=== PATIENT | male | born 1975 | race Caucasian/White ===

== ENCOUNTER 2016-06-18 09:51 | Emergency (ER) | payer MEDICAID ==
[~2016-06-18] VITALS: Ht 182.9 cm; Wt 122.5 kg
[2016-06-18 09:52] VITALS: BP 151/98
== END 2016-06-18 10:26 | disposition home or self-care (01) ==
LOC: ED 09:55
DX: H60.91 Unspecified otitis externa, right ear (principal)
CPT/HCPCS: 99283

== ENCOUNTER 2017-06-13 17:46 | Emergency (ER) | payer MEDICAID ==
[~2017-06-13] VITALS: Ht 182.9 cm; Wt 109.9 kg
[2017-06-13 17:54] VITALS: BP 147/74
== END 2017-06-13 18:41 | disposition home or self-care (01) ==
LOC: ED 18:10
DX: J20.9 Acute bronchitis, unspecified (principal); J02.9 Acute pharyngitis, unspecified
CPT/HCPCS: 71046; 99284

== ENCOUNTER 2017-06-29 13:39 | Emergency (ER) | payer MEDICAID ==
[~2017-06-29] VITALS: Ht 182.9 cm; Wt 105.0 kg
[2017-06-29 13:57] VITALS: BP 107/69
== END 2017-06-29 14:39 | disposition home or self-care (01) ==
LOC: ED 14:37
DX: J20.9 Acute bronchitis, unspecified (principal); J01.00 Acute maxillary sinusitis, unspecified; F17.200 Nicotine dependence, unspecified, uncomplicated
CPT/HCPCS: 99283

== ENCOUNTER 2017-08-29 08:35 | Emergency (ER) | payer MEDICAID ==
[~2017-08-29] VITALS: Ht 182.9 cm; Wt 103.0 kg
[2017-08-29 08:35] VITALS: BP 128/80
[2017-08-29] MEDS ORDERED: IBUPROFEN 800 MG TABLET ONE (09:27)
[2017-08-29] MEDS ORDERED: CYCLOBENZAPRINE 10 MG TABLET ONE (09:27)
[2017-08-29] MEDS ORDERED: CYCLOBENZAPRINE 10 MG TABLET PO ONE (09:30)
[2017-08-29] MEDS ORDERED: IBUPROFEN 800 MG TABLET PO SCH (09:30)
== END 2017-08-29 10:26 | disposition home or self-care (01) ==
LOC: ED 10:00
DX: S29.012A Strain of muscle and tendon of back wall of thorax, initial encounter (principal); X50.0XXA Overexertion from strenuous movement or load, initial encounter; Y93.89 Activity, other specified; Y92.89 Other specified places as the place of occurrence of the external cause; Y99.0 Civilian activity done for income or pay
CPT/HCPCS: 99283

== ENCOUNTER 2017-09-05 08:14 | Emergency (ER) | payer MEDICAID ==
[~2017-09-05] VITALS: Ht 182.9 cm; Wt 103.6 kg
[2017-09-05 08:17] VITALS: BP 117/74
== END 2017-09-05 12:29 | disposition home or self-care (01) ==
LOC: ED 09:44
DX: M54.89 Other dorsalgia (principal); F17.200 Nicotine dependence, unspecified, uncomplicated; X50.0XXA Overexertion from strenuous movement or load, initial encounter; Y93.89 Activity, other specified; Y92.89 Other specified places as the place of occurrence of the external cause; Y99.8 Other external cause status
CPT/HCPCS: 72128; 99284

== ENCOUNTER 2018-02-14 10:25 | Outpatient (CLI) | payer MEDICAID | END 2018-02-21 09:48 | disposition home or self-care (01) | LOC: CFH 10:25 | PROVIDERS: ATTEND Nurse Practitioner Family | DX: M48.061 Spinal stenosis, lumbar region without neurogenic claudication (principal); M47.897 Other spondylosis, lumbosacral region | CPT/HCPCS: 72148 ==

== ENCOUNTER 2018-03-29 11:00 | Outpatient (CLI) | payer MEDICAID | END 2018-03-29 23:59 | disposition home or self-care (01) | LOC: RAD 11:00 | PROVIDERS: ATTEND Nurse Practitioner | DX: M47.816 Spondylosis without myelopathy or radiculopathy, lumbar region (principal) | CPT/HCPCS: 72110 ==

== ENCOUNTER → 2018-05-03 | Outpatient (CLI) | payer MEDICAID ==
[~2018-05-03] MED LIST: OMNIPAQUE 350 MG/ML, 100ML BOTTLE ONE
== END | disposition home or self-care (01) ==
LOC: CFH 11:16
PROVIDERS: ATTEND Nurse Practitioner Family
DX: K76.0 Fatty (change of) liver, not elsewhere classified (principal); R14.0 Abdominal distension (gaseous); R74.8 Abnormal levels of other serum enzymes
CPT/HCPCS: 74177; Q9967

== ENCOUNTER 2018-07-10 09:23 | Emergency (ER) | payer MEDICAID ==
[~2018-07-10] VITALS: Ht 182.9 cm; Wt 121.2 kg
[2018-07-10 09:34] VITALS: BP 134/93
--- NOTE | 2018-07-10 09:45 | NUR ---
THIS IS A 43 YEAR OLD MALE WHO C/O OF R SHOULDER PAIN AND R FOOT PAIN X 1.5 WEEKS AFTER MOVING FURNITURE.
--- NOTE | 2018-07-10 10:59 | NUR ---
Patient/Caregiver given discharge instructions and they have confirmed that they understand the instructions. Patient ambulatory with steady gait.
== END 2018-07-10 11:01 | disposition home or self-care (01) ==
LOC: ED 10:40
DX: G89.11 Acute pain due to trauma (principal); M25.511 Pain in right shoulder; M79.671 Pain in right foot; I10 Essential (primary) hypertension; X50.1XXA Overexertion from prolonged static or awkward postures, initial encounter; Y93.89 Activity, other specified; Y92.009 Unspecified place in unspecified non-institutional (private) residence as the place of occurrence of the external cause; Y99.8 Other external cause status
CPT/HCPCS: 99283

== ENCOUNTER 2019-07-10 10:02 | Emergency (ER) | payer MEDICAID ==
[~2019-07-10] VITALS: Ht 182.9 cm; Wt 126.6 kg
[2019-07-10 10:12] VITALS: BP 152/80
== END 2019-07-10 10:56 | disposition home or self-care (01) ==
LOC: ED 10:44
DX: H66.011 Acute suppurative otitis media with spontaneous rupture of ear drum, right ear (principal); M54.2 Cervicalgia; I10 Essential (primary) hypertension
CPT/HCPCS: 99283

== ENCOUNTER → 2020-02-10 | Outpatient (CLI) | payer MEDICAID ==
[~2020-02-10] MED LIST changes: +FENTANYL PF 100 MCG/2ML ONE; +FLUMAZENIL 0.1 MG/1 ML, 5ML ONE; +MIDAZOLAM 1 MG/ML, 5ML ONE; +NALOXONE 1 MG/ML, 2ML ONE; -OMNIPAQUE 350 MG/ML, 100ML BOTTLE ONE
== END | disposition home or self-care (01) ==
LOC: RAD 12:25
PROVIDERS: ATTEND Neurological Surgery
DX: M51.34 Other intervertebral disc degeneration, thoracic region (principal); E11.9 Type 2 diabetes mellitus without complications; F17.210 Nicotine dependence, cigarettes, uncomplicated; G47.30 Sleep apnea, unspecified; Z72.89 Other problems related to lifestyle
CPT/HCPCS: 72146; 99156; 99157; J2250; J3010; J2310

== ENCOUNTER → 2020-09-02 | Outpatient (CLI) | payer MEDICAID ==
[~2020-09-02] MED LIST changes: +DULA1.5P SC; -FENTANYL PF 100 MCG/2ML ONE; -FLUMAZENIL 0.1 MG/1 ML, 5ML ONE; +METF1000 PO; -MIDAZOLAM 1 MG/ML, 5ML ONE; -NALOXONE 1 MG/ML, 2ML ONE
[2020-09-02 13:49] LABS: MICROSCOPIC NOT IND
[2020-09-02 13:50] LABS: BASOPHILS % (AUTO) 1 % (0-1); EOSINOPHILS % (AUTO) 1 % (1-7); LYMPHOCYTES % (AUTO) 21 % (22-44); MEAN CORPUSCULAR HEMOGLOBIN 32.2 pg (27.5-34.5); MEAN CORPUSCULAR HGB CONC 34.7 g/dL (33.2-36.2); MEAN PLATELET VOLUME 7.9 fL (7.4-10.4); MONOCYTES % (AUTO) 9 % (2-9); NEUTROPHILS % (AUTO) 69 % (42-75); PLATELET COUNT 209 x10^3/uL (130-400); RED BLOOD COUNT 5.62 x10^6/uL (4.38-5.82); RED CELL DISTRIBUTION WIDTH 13.7 % (9.4-14.8)
[2020-09-02 14:01] LABS: ALANINE AMINOTRANSFERASE 23 U/L (12-78); ALBUMIN 4.1 g/dL (3.4-5.0); ANION GAP 7 mmol/L (5-15); CALCIUM 9.7 mg/dL (8.5-10.1); CHLORIDE 106 mmol/L (98-107); CREATININE 0.81 mg/dL (0.7-1.3)
[2020-09-02 14:02] LABS: INTERNATIONAL NORMALIZED RATIO 1.01 (0.93-1.1); PROTHROMBIN TIME 10.8 Seconds (9.6-11.5)
[2020-09-02 14:04] LABS: ALKALINE PHOSPHATASE 62 U/L (45-117); BILIRUBIN,TOTAL 0.5 mg/dL (0.2-1.0)
== END | disposition home or self-care (01) ==
LOC: STAR 12:30
PROVIDERS: ATTEND Neurological Surgery
DX: Z01.818 Encounter for other preprocedural examination (principal); M51.37 Other intervertebral disc degeneration, lumbosacral region; M47.817 Spondylosis without myelopathy or radiculopathy, lumbosacral region; M25.78 Osteophyte, vertebrae; Z20.822 Contact with and (suspected) exposure to COVID-19
CPT/HCPCS: 36415; 71046; 72110; 80053; 81003; 85025; 85610; 85730; 93005; U0003; U0005

== ENCOUNTER 2020-09-04 09:48 | Outpatient (CLI) | payer MEDICAID ==
[2020-09-04] MEDS ORDERED: NALOXONE 1 MG/ML, 2ML ONE (10:59)
[2020-09-04] MEDS ORDERED: MIDAZOLAM 1 MG/ML, 5ML ONE (10:59)
[2020-09-04] MEDS ORDERED: FENTANYL PF 100 MCG/2ML ONE (10:59)
[2020-09-04] MEDS ORDERED: FLUMAZENIL 0.1 MG/1 ML, 5ML ONE (10:59)
== END 2020-09-04 23:59 | disposition home or self-care (01) ==
LOC: RAD 09:48
PROVIDERS: ATTEND Neurological Surgery
DX: M51.36 Other intervertebral disc degeneration, lumbar region (principal); M48.061 Spinal stenosis, lumbar region without neurogenic claudication; G47.30 Sleep apnea, unspecified; E11.9 Type 2 diabetes mellitus without complications; F17.200 Nicotine dependence, unspecified, uncomplicated; Z79.84 Long term (current) use of oral hypoglycemic drugs; Z79.899 Other long term (current) drug therapy
CPT/HCPCS: 72148; 99156; 99157; J2250; J3010; J2310

== ENCOUNTER 2020-09-09 07:01 | Inpatient (IN) | payer MEDICAID ==
[~2020-09-09] VITALS: Ht 182.9 cm; Wt 108.0 kg
[~2020-09-09 07:01] MED LIST changes: +BACITRACIN 50,000 UNIT ONE; +BUPIVACAINE/PF 0.25% ONE
[2020-09-09 07:41] VITALS: BP 112/79
[2020-09-09] MEDS ORDERED: CHLORHEXIDINE 15 ML UDC ONE (07:47)
[2020-09-09] MEDS ORDERED: CHLORHEXIDINE 15 ML UDC PO ONE (08:00)
[2020-09-09] MEDS ORDERED: LACTATED RINGERS 1,000 ML IV SCH (08:00)
[2020-09-09] MEDS ORDERED: VANCOMYCIN 1,000 MG ONE (08:15)
[2020-09-09] MEDS ORDERED: MIDAZOLAM 1 MG/ML, 2ML ONE (08:35)
[2020-09-09] MEDS ORDERED: FENTANYL PF 250 MCG/5ML ONE (08:36)
[2020-09-09] MEDS ORDERED: PROPOFOL 100 ML ONE ×2 (08:38→11:49)
[2020-09-09] MEDS ORDERED: KETAMINE 10 MG/ML, 20ML ONE (09:54)
[2020-09-09] MEDS ORDERED: SUCCINYLCHOLINE 20 MG/ML, 10ML ONE (09:56)
[2020-09-09] MEDS ORDERED: CEFAZOLIN 1,000 MG ONE (09:56)
[2020-09-09] MEDS ORDERED: ONDANSETRON 2MG/ML, 2ML ONE (09:56)
[2020-09-09] MEDS ORDERED: GLYCOPYRROLATE 0.2MG/1ML, 5ML ONE (09:56)
[2020-09-09] MEDS ORDERED: PROPOFOL 10 MG/ML, 20ML ONE (09:56)
[2020-09-09] MEDS ORDERED: ROCURONIUM 10MG/ML,5ML ONE (09:56)
[2020-09-09] MEDS ORDERED: DEXAMETHASONE 4 MG/ML, 1ML ONE (09:56)
[2020-09-09] MEDS ORDERED: NEOSTIGMINE 1 MG/ML, 10ML ONE (09:56)
[2020-09-09] MEDS ORDERED: FENTANYL PF 100 MCG/2ML ONE ×2 (10:20→12:47)
[2020-09-09] MEDS ORDERED: LORazepam 2 MG/ML, 1ML IVPush PRN (11:00)
[2020-09-09] MEDS ORDERED: ONDANSETRON 2MG/ML, 2ML IVPush PRN (11:00)
[2020-09-09] MEDS ORDERED: MEPERIDINE/PF 25MG/0.5ML IVPush PRN (11:00)
[2020-09-09] MEDS ORDERED: PROMETHAZINE 25 MG SUPP PR PRN (11:00)
[2020-09-09] MEDS ORDERED: PROMETHAZINE 25 MG/ML, 1ML IVPush PRN (11:00)
[2020-09-09] MEDS ORDERED: FENTANYL PF 100 MCG/2ML IV PRN (11:00)
[2020-09-09] MEDS ORDERED: METHOCARBAMOL 1,000 MG in DEXTROSE 5% 100 ML IV PRN (11:00)
[2020-09-09] MEDS ORDERED: ACETAMINOPHEN 325 MG TABLET PO PRN (11:00)
[2020-09-09] MEDS ORDERED: OXYcodone 5 MG/5 ML ORAL.SOL UDC PO PRN (11:00)
[2020-09-09] MEDS ORDERED: OXYcodone 5 MG/5 ML ORAL.SOL UDC ONE (12:47)
[2020-09-09] MEDS ORDERED: HYDROmorphone PCA 30 MG/30 ML IV PRN (13:00)
[2020-09-09] MEDS ORDERED: HYDROmorphone 1 MG/ML, 1ML INJ ONE (13:07)
[2020-09-09] MEDS: HYDROmorphone 1 MG/ML, 1ML INJ IVPush PRN ×2 (13:08→13:15)
[2020-09-09] MEDS ORDERED: morphine SULFATE 10 MG/ML, 1ML IV PRN (16:00)
[2020-09-09] MEDS ORDERED: DIAZEPAM 5 MG/ML, 2ML IV PRN (16:00)
[2020-09-09] MEDS ORDERED: DIAZEPAM 5 MG TABLET PO PRN (16:00)
[2020-09-09] MEDS ORDERED: BISACODYL 10 MG SUPP PR PRN (16:00)
[2020-09-09] MEDS ORDERED: DIPHENHYDRAMINE 25 MG CAPSULE PO PRN (16:00)
[2020-09-09] MEDS: NS + 20MEQ KCL 1,000 ML IV SCH (16:00)
[2020-09-09] MEDS ORDERED: TIZANIDINE 2MG TABLET PO PRN (16:00)
[2020-09-09] MEDS ORDERED: MAGNESIUM HYDROXIDE 8%, 30ML UDC PO PRN (16:00)
[2020-09-09] MEDS ORDERED: OXYcodone IR 5MG TABLET PO PRN (16:00)
[2020-09-09] MEDS ORDERED: ONDANSETRON 2MG/ML, 2ML IV PRN (16:00)
[2020-09-09] MEDS ORDERED: DIPHENHYDRAMINE 50 MG/ML, 1ML IVPush PRN (16:00)
[2020-09-09] MEDS: metFORMIN 500 MG TABLET PO SCH (17:00)
[2020-09-09] MEDS: CEFAZOLIN PMX 1GM/50ML 50 ML IVPB SCH (17:30)
[2020-09-09 18:30] VITALS: BP 122/79
[2020-09-10 00:36] VITALS: BP 122/75
[2020-09-10] MEDS: CEFAZOLIN PMX 1GM/50ML 50 ML IVPB SCH (01:39)
[2020-09-10] MEDS: NS + 20MEQ KCL 1,000 ML IV SCH ×3 (02:59→22:00)
[2020-09-10 03:51] VITALS: BP 117/70
[2020-09-10 07:37] VITALS: BP 94/58
[2020-09-10] MEDS: SENNA/DOCUSATE TABLET PO SCH (08:57)
[2020-09-10] MEDS: metFORMIN 500 MG TABLET PO SCH ×2 (08:58→16:49)
[2020-09-10] MEDS: OXYcodone IR 5MG TABLET PO PRN ×3 (12:39→20:56)
[2020-09-10 14:02] VITALS: BP 103/65
[2020-09-10 18:23] VITALS: BP 117/75
[2020-09-11 00:43] VITALS: BP 119/75
[2020-09-11] MEDS: OXYcodone IR 5MG TABLET PO PRN ×2 (03:03→07:01)
[2020-09-11 06:21] VITALS: BP 120/80
[2020-09-11] MEDS: NS + 20MEQ KCL 1,000 ML IV SCH (08:00)
[2020-09-11] MEDS ORDERED: DULAGLUTIDE SQ SCH (09:00)
[2020-09-11] MEDS: SENNA/DOCUSATE TABLET PO SCH (09:00)
[2020-09-11] MEDS: metFORMIN 500 MG TABLET PO SCH (09:00)
[2020-09-11] MEDS ORDERED: CYCLOBENZAPRINE 10 MG TABLET PO PRN (09:30)
[2020-09-11 12:00] VITALS: BP 112/65
== END 2020-09-11 12:25 | disposition home or self-care (01) | DRG 460 ==
LOC: ORIP 07:01 → 4NE 13:54
PROVIDERS: ADMIT Neurological Surgery; ATTEND Neurological Surgery
PROC: 01NB0ZZ Release Lumbar Nerve, Open Approach (ICD-10-PCS; 2020-09-09)
PROC: 01NR0ZZ Release Sacral Nerve, Open Approach (ICD-10-PCS; 2020-09-09)
PROC: 8E0W0CZ Robotic Assisted Procedure of Trunk Region, Open Approach (ICD-10-PCS; 2020-09-09)
PROC: 0SG30AJ Fusion of Lumbosacral Joint with Interbody Fusion Device, Posterior Approach, Anterior Column, Open Approach (ICD-10-PCS; principal; 2020-09-09 10:00)
DX: M51.37 Other intervertebral disc degeneration, lumbosacral region (principal)
CPT/HCPCS: 72100; 72131; 82962; 95938; 95941; C1713; C1776; G0378; J0690; J1100; J1170; J2250; J2405; J2704; J2710; J3010; J3370; J3480; C1762; J0330; J2800; J7120

== ENCOUNTER 2020-09-14 16:57 | Emergency (ER) | payer MEDICAID ==
[~2020-09-14] VITALS: Ht 182.9 cm; Wt 104.3 kg
[~2020-09-14 16:57] MED LIST changes: -BACITRACIN 50,000 UNIT ONE; -BUPIVACAINE/PF 0.25% ONE
--- NOTE | 2020-09-14 17:35 | NUR ---
TO ROOM FROM LOBBY.
[2020-09-14] MEDS ORDERED: ONDANSETRON 2MG/ML, 2ML ONE (19:50)
[2020-09-14] MEDS ORDERED: FAMOTIDINE 20 MG/2 ML ONE (19:52)
[2020-09-14] MEDS ORDERED: SODIUM CHLORIDE FLUSH 10ML SYR IVF ONE (20:00)
[2020-09-14] MEDS ORDERED: SODIUM CHLORIDE 0.9% 1,000ML IVBOLUS ONE (20:00)
[2020-09-14] MEDS ORDERED: FAMOTIDINE 20 MG/2 ML IVPush ONE (20:00)
[2020-09-14] MEDS ORDERED: ONDANSETRON 2MG/ML, 2ML IVPush ONE (20:00)
[2020-09-14 20:01] LABS: BASOPHILS % (AUTO) 0 % (0-1); EOSINOPHILS % (AUTO) 1 % (1-7); LYMPHOCYTES % (AUTO) 21 % (22-44); MEAN CORPUSCULAR HEMOGLOBIN 31.9 pg (27.5-34.5); MEAN CORPUSCULAR HGB CONC 34.1 g/dL (33.2-36.2); MEAN PLATELET VOLUME 7.7 fL (7.4-10.4); MONOCYTES % (AUTO) 11 % (2-9); NEUTROPHILS % (AUTO) 67 % (42-75); PLATELET COUNT 272 x10^3/uL (130-400); RED BLOOD COUNT 4.86 x10^6/uL (4.38-5.82); RED CELL DISTRIBUTION WIDTH 13.4 % (9.4-14.8)
[2020-09-14 20:18] LABS: ALANINE AMINOTRANSFERASE 22 U/L (12-78); ALBUMIN 3.3 g/dL (3.4-5.0); ANION GAP 7 mmol/L (5-15); CALCIUM 9.6 mg/dL (8.5-10.1); CHLORIDE 102 mmol/L (98-107); CREATININE 0.82 mg/dL (0.7-1.3)
[2020-09-14 20:22] LABS: ALKALINE PHOSPHATASE 58 U/L (45-117); BILIRUBIN,TOTAL 0.8 mg/dL (0.2-1.0); TOTAL PROTEIN 7.3 g/dL (6.4-8.2); TROPONIN I < 0.015 ng/mL (0.000-0.045)
[2020-09-14 21:39] VITALS: BP 135/74
== END 2020-09-14 21:41 | disposition home or self-care (01) ==
LOC: ED 21:35
DX: R11.2 Nausea with vomiting, unspecified (principal); R06.6 Hiccough; I10 Essential (primary) hypertension; E11.9 Type 2 diabetes mellitus without complications
CPT/HCPCS: 36415; 71045; 80053; 83690; 84484; 85025; 93005; 96361; 96374; 96375; 99285; J2405; J7030